=== PATIENT | male | born 1955 ===

== ENCOUNTER 2019-07-12 07:04 | Day surgery (SDC) | payer OTHER ==
[~2019-07-12] VITALS: Ht 182.9 cm; Wt 135.7 kg
[~2019-07-12 07:04] MED LIST: ALBU90OI INH; FURO40 PO; ISOMON30 PO; POTA10T PO; Prinivil10 MG PO
[2019-07-12] MEDS ORDERED: METO50ER PO (07:18)
--- NOTE | 2019-07-12 07:24 | NUR ---
Ambulatory in Day SurgeryPatient states colon prep results clear. History, Chart, Medications and Allergies reviewed before start of procedure.Lungs clear T/O to Auscultation. Patient confirms NPO status and agrees with scheduled surgery. Patient States Post-Procedure ride home has been arranged.
--- NOTE | 2019-07-12 08:03 | NUR ---
07/12/19 0803 Jenae Arce History, Chart, Medications and Allergies reviewed before start of procedure. PATIENT CONFIRMS NPO STATUS AND AGREES WITH SCHEDULED PROCEDURE. MONITOR INTACT WITH CONTINUOUS PULSE OXIMETRY AND INTERMITTENT BP. 3-LEAD EKG REVIEWED WITH PHYSICIAN PRIOR TO START OF PROCEDURE. O2 VIA N/C INTACT THROUGHOUT SEDATION/PROCEDURE. PATIENT DETERMINED TO BE ASA APPROPRIATE FOR MODERATE SEDATION PRIOR TO START BY DR. DIANE.
== END 2019-07-12 09:13 | disposition home or self-care (01) ==
LOC: ORSCMMR 07:04 → ORD 08:00 → ORSCMMR 08:00
PROVIDERS: Internal Medicine Gastroenterology
PROC: 0DBK8ZX Excision of Ascending Colon, Via Natural or Artificial Opening Endoscopic, Diagnostic (ICD-10-PCS; principal; 2019-07-12 08:00)
DX: Z12.11 Encounter for screening for malignant neoplasm of colon (principal); D12.2 Benign neoplasm of ascending colon; K57.30 Diverticulosis of large intestine without perforation or abscess without bleeding; E66.01 Morbid (severe) obesity due to excess calories; Z68.42 Body mass index [BMI] 45.0-49.9, adult; Z79.82 Long term (current) use of aspirin; Z79.899 Other long term (current) drug therapy
CPT/HCPCS: 88305; J2250; J3010; J7120